=== PATIENT | male | born 1940 | race African-American/Black ===

== ENCOUNTER 2022-04-17 08:41 | Emergency (ER) | payer OTHER ==
[~2022-04-17] VITALS: Ht 172.7 cm; Wt 82.0 kg
[2022-04-17 12:39] LABS: BASOPHILS % 0.4 % (0.0-2.0); EOSINOPHILS % 1.6 % (0.0-5.0); LYMPHOCYTES % 12.4 % (20.0-50.0); MEAN CORPUSCULAR HEMOGLOBIN 23.6 pg (28.0-32.0); MEAN CORPUSCULAR VOLUME 72.9 fL (80.0-94.0); NEUTROPHILS % 77.6 % (40.0-76.0); RED BLOOD CELL COUNT 4.67 mill/uL (4.7-6.1); RED CELL DISTRIBUTION WIDTH 18.6 % (11.6-14.6)
[2022-04-17 12:45] LABS: CHLORIDE 111 mEq/L (98-107)
[2022-04-17 12:55] LABS: ETHANOL BLOOD < 10 mg/dL
[2022-04-17 13:21] LABS: PLATELET 152 x1000/uL (130-400)
[2022-04-17] MEDS ORDERED: NIFEDIPINE XL 60MG TAB PO SCH (13:30)
[2022-04-17 14:03] VITALS: BP 205/61
== END 2022-04-17 19:18 | disposition home or self-care (01) ==
LOC: ER 09:03 → CANBEDREQ 04-18 00:57
DX: Z04.89 Encounter for examination and observation for other specified reasons (principal); F03.90 Unspecified dementia, unspecified severity, without behavioral disturbance, psychotic disturbance, mood disturbance, and anxiety; I10 Essential (primary) hypertension; E78.00 Pure hypercholesterolemia, unspecified; E11.9 Type 2 diabetes mellitus without complications; Z20.822 Contact with and (suspected) exposure to COVID-19
CPT/HCPCS: 36415; 71045; 80053; 80320; 84484; 85025; 93005; 99285; G0480